=== PATIENT | female | born 1975 | race Caucasian/White ===

== ENCOUNTER → 2016-09-17 | Outpatient (CLI) | payer OTHER ==
--- NOTE | 2016-09-17 08:32 | CT ---
EXAMINATION TYPE: CT cervical spine wo con DATE OF EXAM: 09/17/2016 8:26 AM COMPARISON: NONE HISTORY: Patient complains of chronic neck pain, especially when looking up. CT DLP: [address] of the cervical spine was performed with bone and soft tissue window settings submitted . Coronal and sagittal reconstruction are obtained. There is reversal of the normal cervical lordosis which can be seen in patients with muscle spasticit y. No evidence for fracture or subluxation. C2-3, C3-4 and C7-T1: Within normal limits C4-5: Mild degenerative disc space narrowing. Posterocentral disc bulge without herniation. No centra l stenosis. Bilateral foramina are widely patent. C5-6: Moderate degenerative disc space narrowing. Small right paracentral disc herniation suspected. Mild effacement ventral thecal sac. Mild right foraminal encroachment. No definite central stenosis i dentified. Ventral spondylosis mild in degree. C6-7: Mild degenerative disc space narrowing. Mild posterior disc bulge without herniation. No centra l stenosis. Foramina are widely patent. IMPRESSION: 1. Degenerative disc disease as discussed. 2. Small right paracentral disc herniation at C5-6 with mild right foraminal encroachment. 3. Reversal of the normal cervical lordosis.
== END | disposition home or self-care (01) ==
LOC: RADCTMAIN 08:02
PROVIDERS: ATTEND Neurological Surgery
DX: M50.121 Cervical disc disorder at C4-C5 level with radiculopathy (principal); M50.10 Cervical disc disorder with radiculopathy, unspecified cervical region
CPT/HCPCS: 72125

== ENCOUNTER → 2016-11-23 | Outpatient (CLI) | payer OTHER ==
[2016-11-23 08:38] LABS: EKG EKG PERFORMED
[2016-11-23 09:24] LABS: Partial Thromboplastin Time 27.4 sec (22.0-30.0); Prothrombin Time 10.5 sec (9.0-12.0)
[2016-11-23 09:27] LABS: CH 30.8; CHCM 32.6; HCT 44.9 % (34.0-46.0); HDW 2.53; HGB 14.3 gm/dL (11.4-16.0); MCH 30.2 pg (25.0-35.0); MCHC 31.9 g/dL (31.0-37.0); MCV 94.8 fL (80.0-100.0); RBC 4.73 m/uL (3.80-5.40); RDW 15.9 % (11.5-15.5); WBC 13.4 k/uL (3.8-10.6)
[2016-11-23 09:34] LABS: ALT 36 U/L (9-52); AST 23 U/L (14-36); Alkaline Phosphatase 156 U/L (38-126); Anion Gap 10 mmol/L; Blood Urea Nitrogen 23 mg/dL (7-17); Calcium 8.8 mg/dL (8.4-10.2); Carbon Dioxide 22 mmol/L (22-30); Chloride 115 mmol/L (98-107); Glucose 95 mg/dL (74-99); Non-African American GFR(MDRD) >60 (>60 ml/min/1.73 sqM); Potassium 4.4 mmol/L (3.5-5.1); Sodium 147 mmol/L (137-145); Total Bilirubin 0.2 mg/dL (0.2-1.3); Total Protein 6.9 g/dL (6.3-8.2)
[2016-11-23 09:36] LABS: Appearance,Urine Cloudy (Clear); Bacteria,Urine Rare /hpf; Bilirubin,Urine 1+ (Negative); Glucose,Urine (UA) Negative (Negative); Ketones,Urine Trace (Negative); Leukocyte Esterase,Urine Trace (Negative); Mucus,Urine Many /hpf; Nitrite,Urine Negative (Negative); PH, Urine 5.5 (5.0-8.0); Particle Count 14252; Protein,Urine 1+ (Negative); RBC,Urine 2 /hpf (0-5); Specific Gravity,Urine 1.031 (1.001-1.035); Squamous Epithelial Cell,Urine 1 /hpf (0-4); UA Billing (MACRO vs. MICRO) MICRO; WBC,Urine 4 /hpf (0-5)
--- NOTE | 2016-11-23 09:42 | XR ---
EXAMINATION TYPE: XR chest 2V DATE OF EXAM: 11/23/2016 COMPARISON: Prior chest x-ray 10/13/2013 HISTORY: Preop testing, lumbar surgery TECHNIQUE: Frontal and lateral views of the chest are obtained. FINDINGS: There is no focal air space opacity, pleural effusion, or pneumothorax seen. The cardiac silhouette size is within normal limits. The osseous structures are intact. IMPRESSION: No acute cardiopulmonary process.
== END | disposition home or self-care (01) ==
LOC: LABWHC1 08:26
PROVIDERS: ATTEND Neurological Surgery
DX: Z01.810 Encounter for preprocedural cardiovascular examination (principal); R93.1 Abnormal findings on diagnostic imaging of heart and coronary circulation; M48.06 Spinal stenosis, lumbar region; K76.0 Fatty (change of) liver, not elsewhere classified; T50.2X5A Adverse effect of carbonic-anhydrase inhibitors, benzothiadiazides and other diuretics, initial encounter; R32 Unspecified urinary incontinence; Z01.818 Encounter for other preprocedural examination
CPT/HCPCS: 36415; 71020; 80053; 81001; 85027; 85610; 85730; 87070; 93005

== ENCOUNTER → 2017-01-06 | Outpatient (CLI) | payer OTHER ==
--- NOTE | 2017-01-06 14:35 | XR ---
Lumbar spine HISTORY: Postop lumbar fusion 3 views of the lumbar spine Comparison prior CT 07/02/2014, 06/07/2014 Patient is status post lumbar fusion at L4-5 with intervertebral spacing material, posterior transped icular screws are present bilaterally. Surgical clips present in the right upper quadrant. Stimulator is present with lead coursing into the sacral region, fixation devices also present across the sacro iliac joint on the right. Laminectomies at L4 and noted. There is a spinal curvature. Spondylosis is present at the upper lumbar spine. Loss of disc height present at L2-3, possibly L1 to. Lumbar verteb ral bodies show preserved height. Bone mineralization is mildly reduced. IMPRESSION: Degenerative disc disease, scoliosis, postop changes.
== END | disposition home or self-care (01) ==
LOC: RADXRMAIN 13:35
PROVIDERS: ATTEND Neurological Surgery
DX: M51.36 Other intervertebral disc degeneration, lumbar region (principal); M54.42 Lumbago with sciatica, left side; M54.41 Lumbago with sciatica, right side; M41.86 Other forms of scoliosis, lumbar region; Z98.890 Other specified postprocedural states; Z98.1 Arthrodesis status; Z48.02 Encounter for removal of sutures
CPT/HCPCS: 72100

== ENCOUNTER → 2017-06-24 | Outpatient (CLI) | payer OTHER ==
--- NOTE | 2017-06-24 16:01 | XR ---
Lumbar spine HISTORY: Back pain Correlation to prior exam 01/06/2017 Patient is status post posterior lumbar fusion at L4-5. Laminectomy is present, intervertebral spacin g material present at L4-5. Surgical clips present in the right upper quadrant. Patient shows fusion at the right sacroiliac joint, there is a stimulator present within the sacral region to the right of midline. There is a mild spinal curvature. Multilevel spondylosis is present. Lumbar vertebral kike s show stable height and alignment, bone mineralization is reduced. IMPRESSION: Stable neurosurgical follow-up. Degenerative disc disease. Osteopenia.
--- NOTE | 2017-06-24 16:02 | XR ---
Cervical spine HISTORY: Neck pain 4 views of the cervical spine correlated to prior exam 04/12/2017 Patient shows anterior cervical fusion and discectomy changes at C5-6. Alignment is stable. Vertebral body height and bone mineralization are unchanged. IMPRESSION: Stable neurosurgical follow-up
== END | disposition home or self-care (01) ==
LOC: RADXRMAIN 13:01
PROVIDERS: ATTEND Neurological Surgery
DX: M51.36 Other intervertebral disc degeneration, lumbar region (principal); M85.88 Other specified disorders of bone density and structure, other site; M54.2 Cervicalgia; Z98.890 Other specified postprocedural states
CPT/HCPCS: 72050; 72100

== ENCOUNTER → 2017-06-28 | Outpatient (CLI) | payer OTHER ==
--- NOTE | 2017-06-29 07:25 | XR ---
EXAMINATION TYPE: XR abdomen 2V DATE OF EXAM: 06/28/2017 COMPARISON: NONE HISTORY: Diarrhea TECHNIQUE: 2 view abdominal series FINDINGS: Postsurgical change involving the vertebral column. Stimulator device overlying the right pelvis. Bo gical clips gallbladder fossa. Calcifications the pelvis are likely vascular. Arthropathy of the hips . The bowel gas pattern is nonspecific. Lung bases are clear. IMPRESSION: 1. Nonspecific abdomen.
== END | disposition home or self-care (01) ==
LOC: RADXRMAIN 16:33
PROVIDERS: ATTEND Family Medicine
DX: R19.7 Diarrhea, unspecified (principal)
CPT/HCPCS: 74019

== ENCOUNTER → 2017-07-12 | Outpatient (CLI) | payer OTHER ==
--- NOTE | 2017-07-13 14:35 | MM ---
Reason for exam: screening (asymptomatic). Last mammogram was performed 3 years and 11 months ago. History: Patient is postmenopausal. Taking estrogen for 10 years beginning at age 32. Physical Findings: A clinical breast exam by your physician is recommended on an annual basis and results should be correlated with mammographic findings. MG Screening Mammo w CAD Bilateral CC and MLO view(s) were taken. Prior study comparison: August 18, 2013, mammogram. September 22, 2006, mammogram. There are scattered fibroglandular densities. No suspicious abnormality. No significant changes when compared with prior studies. ASSESSMENT: Negative, BI-RAD 1 RECOMMENDATION: Routine screening mammogram of both breasts in 1 year.
== END | disposition home or self-care (01) ==
LOC: RADMAMWWP 14:43
PROVIDERS: ATTEND Family Medicine
DX: Z12.31 Encounter for screening mammogram for malignant neoplasm of breast (principal)
CPT/HCPCS: 77067

== ENCOUNTER → 2017-07-23 | Outpatient (CLI) | payer OTHER ==
--- NOTE | 2017-07-23 14:56 | BD ---
EXAMINATION TYPE: MG DEXA axial skeleton. DATE OF EXAM: 07/23/2017 COMPARISON: NONE CLINICAL HISTORY: Height: 63 Weight: 237.9 FRAX RISK QUESTIONS: Alcohol (3 or more units per day): no Family History (Parent hip fracture): no Glucocorticoids (More than 3mos): no (Ex: prednisone, prednisolone, methylprednisolone, dexamethasone, and hydrocortisone). History of Fracture in Adulthood: yes Secondary Osteoporosis: 1. Type 1 Diabetes: no 2. Hyperthyroidism: no 3. Menopause before 45: yes 4. Malnutrition: no 5. Chronic liver disease: no Rheumatoid Arthritis: no Current Tobacco Use: yes RISK FACTORS HISTORY OF: Surgery to Spine/Hip(right/left)/Wrist (right/left): lumbar spine surgery x7- l-4/l-5 2005 honey celis 2016 Family History of Osteoporosis: yes Active: yes Diet low in dairy products/other sources of calcium: no Postmenopausal woman: hysterectomy age 2007 Take estrogen and/or progesterone medications: estrogen How long: since 2006 Lost more than 2 inches in height since high school: no Frequent falls: yes MEDICATIONS: neurontin, protonix, cymbalta, lactamil, valium, gimbofibrozel, mobic, spirolactone, zyr jnes, percasetcalcium, vit-d Additional History: EXAM MEASUREMENTS: Bone mineral densitometry was performed using the [employer] System. Bone mineral density about the R hip (g/cm2): 0.864 Bone mineral density about the L hip (g/cm2): 0.877 T Score values are as follows: -----R Neck: -1.2 -----L Neck: -1.2 -----R Total: -0.4 -----L Total: 0.1 Bone mineral density has: baseline IMPRESSION:negative NOTE: T-SCORE=SD OF THE YOUNG ADULT MEAN.
== END | disposition home or self-care (01) ==
LOC: RADBDWWP 12:40
PROVIDERS: ATTEND Family Medicine
DX: M81.0 Age-related osteoporosis without current pathological fracture (principal)
CPT/HCPCS: 77080

== ENCOUNTER → 2018-10-14 | Outpatient (CLI) | payer OTHER ==
--- NOTE | 2018-10-14 12:22 | US ---
EXAMINATION TYPE: US liver DATE OF EXAM: 10/14/2018 COMPARISON: NONE CLINICAL HISTORY: R74 ELEV LIVER ENZYMES. EXAM MEASUREMENTS: Liver Length: 21.8 cm Gallbladder Wall: Surgically absent CBD: 0.7 cm Right Kidney: 11.2 x 4.6 x 3.8 cm Pancreas: Obscured by bowel gas Liver: Enlarged. There is increased echogenicity of the hepatic parenchyma with diminished visualiza tion of the portal triads most commonly relating to hepatic steatosis and limiting evaluation for und erlying hepatic masses. Gallbladder: Surgically absent Evidence for sonographic Cano's sign: No CBD: wnl Right Kidney: No hydronephrosis or masses seen IMPRESSION: Sonographic findings most commonly related to hepatic steatosis. Correlate with liver fun ction test results.
== END | disposition home or self-care (01) ==
LOC: RADUSWWP 09:27
PROVIDERS: ATTEND Family Medicine
DX: K76.0 Fatty (change of) liver, not elsewhere classified (principal)
CPT/HCPCS: 76705

== ENCOUNTER → 2018-10-14 | Outpatient (CLI) | payer OTHER ==
--- NOTE | 2018-10-14 10:34 | XR ---
EXAMINATION TYPE: XR ribs RT DATE OF EXAM: 10/14/2018 COMPARISON: NONE HISTORY: Right rib pain TECHNIQUE: 4 views submitted FINDINGS: There are deformities involving the anterolateral right fourth, fifth, sixth and seventh ei ghth, ninth and 10th ribs. Lung is clear with no pneumothorax. Pleural thickening noted. IMPRESSION: 1. Findings are compatible with fractures involving the right fourth through 10th ribs some of which have demonstrated interval healing and callus formation. A recent fracture or incomplete healing involving the right fourth and fifth ribs in the differential diagnosis.
--- NOTE | 2018-10-14 12:09 | CT ---
EXAMINATION TYPE: CT lumbar spine wo con DATE OF EXAM: 10/14/2018 COMPARISON: CT 07/02/2014, plain film 06/24/2017 HISTORY: Low back pain, Radicular low back pain CT DLP: 1449.7 mGycm Automated exposure control for dose reduction was used. An unenhanced CT of the lumbar spine was performed. Bone and soft tissue window settings are submitt ed as well as coronal and sagittal reconstructions. FINDINGS: Patient is post posterior L4-5 lumbar fusion, right-sided sacral fusion. Laminectomies are present at L4, soft tissue density at this level shows poor contrast resolution. Punctate nonobstructive calcul us present in the right kidney lower pole.. Metallic artifact could limit sensitivity. No evident spi nal stenosis or disc herniation. There is a stimulator lead coursing through the sacral foramen on th e right, lead is present in the presacral region L1-L2: Normal disc space height. No disc herniation protrusion or central stenosis. No facet joint arthropathy. No evidence for foraminal encroachment. L2-L3: Broad-based disc bulge causes mild anterior mass effect on the thecal sac. There is some mild facet arthropathy. No significant foraminal encroachment or spinal stenosis. L3-L4: Suspect there is a small broad-based posterior disc bulge no significant stenosis. Some facet arthropathy changes present with hypertrophy of the ligamentum flavum. Circumferential disc bulge cou ld encroach somewhat on the foramina greater on the right L4-L5: Right-sided foraminal encroachment may be present due to bony hypertrophic changes, correlate for right L4 radiculopathy L5-S1: Difficult to exclude foraminal encroachment on the right, transpedicular screw courses in clos e proximity to the foramen IMPRESSION: Post operative changes, degenerative disc disease, facet arthropathy, foraminal encroachm ent as described. Right-sided nephrolithiasis and additional findings above. No paraspinal masses are identified. Lumbar segments are intact.
== END | disposition home or self-care (01) ==
LOC: RADCTMAIN 09:51
PROVIDERS: ATTEND Neurological Surgery
DX: M51.16 Intervertebral disc disorders with radiculopathy, lumbar region (principal); M46.86 Other specified inflammatory spondylopathies, lumbar region; R07.81 Pleurodynia; M89.8X8 Other specified disorders of bone, other site
CPT/HCPCS: 72131

== ENCOUNTER → 2018-10-25 | Outpatient (CLI) | payer OTHER ==
--- NOTE | 2018-10-25 17:05 | US ---
EXAMINATION TYPE: US venous doppler duplex LE RT DATE OF EXAM: 10/25/2018 4:44 PM COMPARISON: NONE CLINICAL HISTORY: M79.661 PAIN IN RT LOWER LIMB. right sciatic nerve pain, no h/o dvt SIDE PERFORMED: Right TECHNIQUE: The lower extremity deep venous system is examined utilizing real time linear array sonog goran with graded compression, doppler sonography and color-flow sonography. VESSELS IMAGED: External Iliac Vein (EIV) Common Femoral Vein Deep Femoral Vein Greater Saphenous Vein * Femoral Vein Popliteal Vein Small Saphenous Vein * Proximal Calf Veins (* superficial vessels) Right Leg: Appears negative for DVT IMPRESSION: Negative right leg duplex venous sonogram.
== END | disposition home or self-care (01) ==
LOC: RADUSWWP 16:27
PROVIDERS: ATTEND Family Medicine
DX: M79.661 Pain in right lower leg (principal)

== ENCOUNTER → 2019-05-17 | Outpatient (CLI) | payer OTHER ==
[2019-05-17 14:25] LABS: HCT 44.2 % (34.0-46.0); HGB 13.9 gm/dL (11.4-16.0); Hypochromasia Slight; MCH 31.2 pg (25.0-35.0); MCHC 31.5 g/dL (31.0-37.0); MCV 99.1 fL (80.0-100.0); Macrocytosis Slight; Mean Platelet Volume 9.2; Platelet Count 332 k/uL (150-450); RBC 4.46 m/uL (3.80-5.40); RDW 15.1 % (11.5-15.5); WBC 12.8 k/uL (3.8-10.6)
[2019-05-17 15:14] LABS: Appearance,Urine Cloudy (Clear); Bacteria,Urine Few /hpf; Bilirubin,Urine Negative (Negative); Blood,Urine Negative (Negative); Color,Urine Yellow; Glucose,Urine (UA) Negative (Negative); Ketones,Urine Negative (Negative); Leukocyte Esterase,Urine Trace (Negative); Mucus,Urine Occasional /hpf; Nitrite,Urine Negative (Negative); Protein,Urine Trace (Negative); RBC,Urine <1 /hpf (0-5); Specific Gravity,Urine 1.027 (1.001-1.035); Squamous Epithelial Cell,Urine 7 /hpf (0-4); WBC,Urine 3 /hpf (0-5)
--- NOTE | 2019-05-17 15:42 | XR ---
EXAMINATION TYPE: XR chest 2V DATE OF EXAM: 05/17/2019 COMPARISON: Prior chest 11/23/2016 HISTORY: Preop TECHNIQUE: Frontal and lateral views of the chest are obtained. FINDINGS: There is no focal air space opacity, pleural effusion, or pneumothorax seen. The cardiac silhouette size is within normal limits. The osseous structures are intact. Surgical clips present in the right upper quadrant. Mild thickening of the minor fissure noted. IMPRESSION: No acute cardiopulmonary process.
[2019-05-17 19:17] LABS: African American GFR (CKD) 69.7 (60.0-200.0); Anion Gap 7.1 mmol/L (4.00-12.00); BUN/Creat Ratio 19.09 Ratio (12.00-20.00); Calcium 9.3 mg/dL (8.7-10.3); Carbon Dioxide 23.9 mmol/L (21.6-31.8); Non-African American GFR(CKD) 60.2 (60.0-200.0); Potassium 4.4 mmol/L (3.5-5.5)
== END | disposition home or self-care (01) ==
LOC: LABWHC1 13:57
PROVIDERS: ATTEND Neurological Surgery
DX: Z01.811 Encounter for preprocedural respiratory examination (principal); Z01.818 Encounter for other preprocedural examination; Z01.812 Encounter for preprocedural laboratory examination; I10 Essential (primary) hypertension; D64.9 Anemia, unspecified; R05 Cough; R30.0 Dysuria; I49.8 Other specified cardiac arrhythmias
CPT/HCPCS: 36415; 71046; 80048; 81001; 85027; 93005

== ENCOUNTER → 2019-12-12 | Outpatient (CLI) | payer OTHER ==
--- NOTE | 2019-12-13 09:28 | BD ---
EXAMINATION TYPE: Axial Bone Density DATE OF EXAM: 12/12/2019 COMPARISON: 07/23/2017 CLINICAL HISTORY: Height: 61 IN Weight: 210 LBS FRAX RISK QUESTIONS: Secondary Osteoporosis: 3. Menopause before 45: TOTAL HYST AGE 31 5. Chronic liver disease: YES FATTY LIVER Current Tobacco Use: YES RISK FACTORS HISTORY OF: Spine Fracture: L4-L5 FX 2005; L2-L3 FX 2018 History of Wrist Fracture: RT WRIST 2019 Surgery to Spine: 8 SURGERIES ON L-SPINE AND C-SPINE Active: LIMITED Postmenopausal woman: TOTAL HYST AGE 31 Take estrogen and/or progesterone medications: NOT NOW How long: AGE [age] Lost more than 2 inches in height since high school: YES 3" MEDICATIONS: Thyroid Medications: YES Which medication: Levothyroxine How Lon YEAR Additional Medications: CALCIUM, VIT D, LEVOTHYROXINE, CHOLESTEROL MEDS, BLOOD PRESSURE MEDS, PAIN ME DS, DIABETES MEDS, HIATAL HERNIA MEDS, HAIR GROWTH MEDS, HEADACHE MEDS, DEPRESSION, ANXIETY MEDS, EXAM MEASUREMENTS: Bone mineral densitometry was performed using the [employer] System. Bone mineral density about the R hip (g/cm2): 0.822 Bone mineral density about the L hip (g/cm2): 0.843 T Score values are as follows: -----R Neck: -1.6 -----L Neck: -1.4 -----R Total: -0.8 -----L Total: -0.1 Bone mineral density has: Decreased -2.8% since study of: 07/23/2017 Bone mineral density about the L Wrist (g/cm2): 0.638 T Score values are as follows: -----Dist. R+U: -0.5 -----Prox. R+U: -0.6 -----Radius total: -0.6 Bone mineral density BASELINE IMPRESSION: No evidence for osteoporosis or osteopenia. NOTE: T-SCORE=SD OF THE YOUNG ADULT MEAN.
== END | disposition home or self-care (01) ==
LOC: RADBDWWP 16:02
PROVIDERS: ATTEND Family Medicine
DX: Z78.0 Asymptomatic menopausal state (principal)
CPT/HCPCS: 77080

== ENCOUNTER → 2020-09-30 | Outpatient (CLI) | payer OTHER ==
--- NOTE | 2020-10-02 09:00 | MR ---
EXAMINATION TYPE: MR lumbar spine wo/w con DATE OF EXAM: 09/30/2020 COMPARISON: None HISTORY: LBP, BLE pain, numbness right leg. Hx 4 surgeries, most recent 2019. CONTRAST: 0 mL intravenous Gadavist. TECHNIQUE: Multiplanar, multisequence images of the lumbar spine were acquired. FINDINGS: L5-S1: No significant disc bulge or disc herniation. No spinal canal stenosis. No foraminal stenosi s. Mild right facet hypertrophy is present. L4-L5: Disc desiccation is present. Some disc space changes are present. No focal disc herniation is evident. Mild focal bulge is present centrally without thecal sac compression or exiting nerve root c ompression. No spinal canal stenosis is present. There is moderate right foraminal narrowing from dis c bulging into the foramen. L3-L4: No significant disc bulge or disc herniation. No spinal canal stenosis. No foraminal stenosi s. Facet hypertrophy is present. Some mild right foraminal narrowing is present L2-L3: No significant disc bulge or disc herniation. No spinal canal stenosis. No foraminal stenosi s. L1-L2: No significant disc bulge or disc herniation. No spinal canal stenosis. No foraminal stenosi s. T12-L1: No significant disc bulge or disc herniation. No spinal canal stenosis. No foraminal stenos is. Postsurgical changes are evident posterior to the L4 level extending from the L3 through the L5 level . Enhancing granulation tissue tissue extends through the skin surface. No pseudomeningocele is ident ified. No suspicious enhancement is evident. IMPRESSION: 1. Moderate Foraminal narrowing appears greatest at L4-L5 on the right from disc bulging. Some milder foraminal narrowing is present at L3-4 2. Postsurgical changes.
== END | disposition home or self-care (01) ==
LOC: RADMRIMAIN 14:42
PROVIDERS: ATTEND Physician Assistant
DX: M51.26 Other intervertebral disc displacement, lumbar region (principal); M99.73 Connective tissue and disc stenosis of intervertebral foramina of lumbar region
CPT/HCPCS: 72158; A9585